=== PATIENT | female | born 1945 | race Caucasian/White ===

== ENCOUNTER → 2017-08-22 | Outpatient (CLI) | payer OTHER ==
[~2017-08-22] VITALS: Ht 154.9 cm; Wt 61.2 kg
[~2017-08-22] MED LIST: SYNTHROID88 MCG PO; ZANTAC 150MG T150 MG PO
--- NOTE | ~2017-08-22 | P ---
[facility] [place] [address] [address] [place] [address] PROCEDURE REPORT Name: FERCHO MARKS Room #: REG [facility]#: [id number] Admission: 08/22/17 Attend Phys: Eulalio Russo MD Discharge: Date of : 43 Report #: [id number] THIS REPORT FOR: //name// CC: Adela Russo BRIEF HISTORY: The patient is a 72-year-old woman with a history of colon polyps. Her last colonoscopy was 4-1/2 years ago. PREOPERATIVE DIAGNOSIS: History of colon polyps. POSTOPERATIVE DIAGNOSES: 1. Diminutive polyps times 2, hepatic flexure. 2. Moderately severe diverticulosis coli, primarily left colon with a few scattered proximal colon. 3. Internal hemorrhoids. MEDICATIONS: Deep sedation with propofol per anesthesia. SPECIMEN: Polyps times 2, hepatic flexure. ESTIMATED BLOOD LOSS: 3 mL. PROCEDURE: Colonoscopy to cecum and terminal ileum with biopsy. FINDINGS: Prior to propofol sedation, procedure of colonoscopy discussed with the patient as well as potential risks, benefits, and complications. She indicates she understands and desires to proceed. With the patient in left lateral decubitus position, digital examination was completed, which revealed no abnormalities. Subsequently, the [employer]re[employer] video colonoscope was introduced into the rectum and advanced under direct vision to the cecum. Done with minimal difficulty. The cecum was identified by the ileocecal valve and the appendiceal orifice. I was able to visualize the distal segment of terminal ileum, which was inspected and noted to be unremarkable. At that point, the scope was slowly withdrawn and careful circumferential views obtained including retroflexing the scope in the ascending colon. As the scope was withdrawn, the mucosa was within normal limits, normal vascular pattern, and normal light reflex. No abnormalities were noted until the hepatic flexure was reached at which point 2 diminutive polyp was seen and removed by biopsy. Scope was further withdrawn and no additional neoplastic lesions were seen elsewhere in the colon. A few scattered diverticula were seen in the proximal colon, but she has noted to have moderately severe diverticular disease of the sigmoid colon without an endoscopic evidence of diverticulitis. The scope was withdrawn in the rectum. Upon retroflexion, hemorrhoids were seen. No other abnormalities were identified. Scope was withdrawn. The patient tolerated the [address] [address] PROCEDURE REPORT Name: SELINAFERCHO MAE Room #: REG [facility].#: [id number] Admission: 08/22/17 Attend Phys: Eulalio Russo MD Discharge: Date of : 43 Report #: [id number] procedure well. CONDITION OF THE PATIENT UPON DISCHARGE: Following procedure, the patient drowsy, aroused, conversant and will be discharged home when fully ambulatory. INSTRUCTIONS TO THE PATIENT AND FAMILY AT THE TIME OF DISCHARGE: Two small polyps identified and removed as described above. We will follow up on the path and make surveillance recommendations. If one or both polyps are adenomatous, she should return in 5 years. If neither adenomatous, she could consider a followup colon exam in 10 years on her overall polyps status at that time. Last colonoscopy was 4-1/2 years ago. Withdrawal time from the cecum was 13 minutes and 48 seconds. <ELECTRONICALLY SIGNED> By: Eulalio Russo MD 08/23/17 1108 1015 1039 Eulalio Russo MD /nt
--- NOTE | ~2017-08-22 | S ---
[facility] [place] [address] [place] [address] SURGICAL PATH RPT PROCEDURE Name: LISBET MARKS Room #: REG [facility]..#: [id number] Admission: 08/22/17 Date of : 41 Discharge: Report #: [id number] Path Case #: [id number] PATHOLOGY REPORT COLLECTION DATE: 08/22/2017 RECEIVED DATE: 08/22/2017 SUBMITTING PHYS: Dr. Eulalio Russo OTHER PHYS: Dr. Adela Mao SPECIMEN(S) RECEIVED: A.Polyp at hepatic flexure x2 * * * * * * * * * * * * FINAL DIAGNOSIS: Colon, hepatic flexure, biopsy: - Tubular adenoma, fragments. - Negative for high dysplasia. PATHOLOGIST: Ryan Tucker M.D. REPORT ELECTRONICALLY SIGNED BY: Ryan Tucker M.D. DATE/TIME: 08/23/2017 11:56 * * * * * * * * * * * * GROSS PATHOLOGY: The specimen is received in formalin, labeled "Lisbet Marks and polyp at hepatic flexure", are two kyle polypoid soft tissue 0.2 and a 0.4 cm in greatest dimension, entirely submitted in A1. (SWS; 08/22/2017) CLINICAL HISTORY: History of polyps INITIAL CPT CODE(S): A; 99675 Professional services performed by [facility] at [facility] [address] [place] [address] Technical services performed by [facility] at [address] [place] [address], [address], [place] [address]. [facility] [address] [place] [address] SURGICAL PATH RPT PROCEDURE Name: LISBET MARKS Room #: REG [facility] Edel#: [id number] Admission: 08/22/17 Date of : 41 Discharge: Report #: [id number] Path Case #: [id number] [place] [address] PHONE: [phone] DIRECTOR: Terry Love M.D. * * * END OF REPORT * * *
== END | disposition home or self-care (01) ==
LOC: GI 08:03
DX: Z09 Encounter for follow-up examination after completed treatment for conditions other than malignant neoplasm (principal); Z87.19 Personal history of other diseases of the digestive system; D12.3 Benign neoplasm of transverse colon; K57.30 Diverticulosis of large intestine without perforation or abscess without bleeding; K64.8 Other hemorrhoids; Z87.891 Personal history of nicotine dependence; Z85.828 Personal history of other malignant neoplasm of skin; K21.9 Gastro-esophageal reflux disease without esophagitis; Z90.711 Acquired absence of uterus with remaining cervical stump; Z96.641 Presence of right artificial hip joint; Z98.42 Cataract extraction status, left eye; Z98.890 Other specified postprocedural states; Z88.5 Allergy status to narcotic agent
CPT/HCPCS: 62110; 62900

== ENCOUNTER 2019-04-24 03:44 | Inpatient (IN) | payer OTHER ==
[~2019-04-24] VITALS: Ht 1 cm; Wt 64.9 kg
--- NOTE | ~2019-04-24 | HC ---
[facility] [place] [address] CONSULTATION Name: FERCHO MARKS Room #: 170-1 ADM IN M.R.#: [id number] Admission: 04/24/19 ������������������ Attend Phys: Claudio Artis MD Discharge: ������������������ Date of : 43 Report #: [id number] THIS REPORT FOR: //name// CC: Adela Artis DATE OF SERVICE: 04/24/2019 REASON FOR CONSULTATION/CHIEF COMPLAINT: Right thumb and distal phalanx fracture and left elbow dislocation. HISTORY OF PRESENT ILLNESS: The patient is a 73-year-old right-hand dominant female who went out to her car last night to put the windows up. She then started to return, became dizzy and fell. She sustained a significant amount of pain and deformity to her left elbow and complains of pain in her right thumb tip. She was then brought to the ER by her 39-year-old grandson and worked up for cardiac issue. She also underwent a closed reduction of her left elbow with splint application and she was diagnosed with a fracture of her thumb distal phalanx and placed into an Alumafoam splint as well. REVIEW OF SYSTEMS: MUSCULOSKELETAL: Denies other extremity complaints, see HPI. NEUROLOGIC: Denies numbness or tingling in her extremities. PAST MEDICAL HISTORY: Significant for hypothyroidism, gastroesophageal reflux disease and mitral valve prolapse. PAST SURGICAL HISTORY: Cataract surgery, right total hip arthroplasty, thyroidectomy and some type of surgical fixation for fracture of her ankle. ALLERGIES: ROXICET. MEDICATIONS: Levothyroxine. SOCIAL HISTORY: Lives at home with her 39-year-old grandson. Does not use any ambulatory aids. Just quit smoking about a year ago; however, smoked about a pack of cigarettes last week. She uses alcohol occasionally. LABORATORY STUDIES: Done on the date of admission show a white blood cell count 12.7, hemoglobin 12.2 and hematocrit 36. Chemistry is grossly normal. Her troponin is elevated. PHYSICAL EXAMINATION: GENERAL: The patient is awake, alert and oriented. She is a well-developed, well-nourished female in no acute distress. She interacts appropriately and has normal affect. [address] [address] CONSULTATION Name: SELINAFERCHO MAE Room #: 170-1 ADM IN .R.#: [id number] Admission: 04/24/19 ������������������ Attend Phys: Claudio Artis MD Discharge: ������������������ Date of : 43 Report #: [id number] VITAL SIGNS: Most recent vital signs show temperature of 36.6, heart rate is 85, respiratory rate is 18, blood pressure 158/54 and pulse oximetry 97% on room air. EXTREMITIES: Examination of her right upper extremity, her skin is clean, dry and intact. She has a moderate amount of edema and ecchymosis to the thumb P2 with a blue Alumafoam splint in place. She has gross motor and sensory intact throughout her right upper extremity. There is no tenderness to palpation to the sternum and clavicle, shoulder, arm, elbow, forearm, wrist or hand except for the thumb distal phalanx. She moves, gross motion is intact and is painless. Left upper extremity exam, she is in a posterior splint that extends to the dorsum of her hand. Her skin is otherwise clean, dry and intact. She has gross motor and sensory intact. She is able to flex and extend and abduct and adduct her fingers. There is no pain with gentle shoulder, wrist and hand range of motion. All compartments are soft. There is no pain with active or passive range of motion. Bilateral lower extremity exam, skin is clean, dry and intact. Gross motor and sensory intact. EHL, FHL, dorsiflexion and plantar flexion are intact. She has no pain with range of motion of the bilateral hips, knees, ankles or feet. No tenderness to palpation throughout the entire bilateral lower extremities. RADIOGRAPHS: Three views of the right thumb were reviewed and interpreted by myself as well as report was reviewed, which shows an essentially nondisplaced distal phalanx fracture of the thumb. Two views of the left elbow were reviewed and interpreted by myself as well as a report. Pre-reduction show a posterior elbow dislocation with a few small fragments. Post-reduction none of these fragments are noted and the elbow appears to be concentrically reduced. IMPRESSION AND PLAN: 1. Right thumb distal phalanx fracture that is essentially nondisplaced. She is currently in an Alumafoam splint. I would anticipate she would be in an Alumafoam splint for approximately 6 weeks. She is to not put any weight through the thumb; however, may weightbear through that hand. 2. Left elbow dislocation that is concentrically reduced. I encouraged finger range of motion. I will consult occupational therapy. She is to be nonweightbearing on that extremity. She should see me in my office at [facility] later next week. Questions were encouraged and answered to the [facility] [address] [place] [address] CONSULTATION Name: FERCHO MARKS Room #: 170-1 ADM IN M.R.#: [id number] Admission: 04/24/19 ������������������ Attend Phys: Claudio Artis MD Discharge: ������������������ Date of : 41 Report #: [id number] of my ability. Please call one of my [facility] partners this weekend if needed. We discussed the likelihood of some residual stiffness. ��������������������������������������������� ���������������������������������������� By: ��������������������������������������������� 0735 0906 Gregoria Santos MD /nt
[2019-04-24 03:59] VITALS: BP 158/54
[2019-04-24 04:21] LABS: ABSOLUTE NEUTROPHILS 10.5 thou/uL (1.4-8.2); BASOPHILS 0.4 % (0.0-2.0); EOSINOPHILS 0.2 % (0.0-3.0); HEMOGLOBIN 12.2 gm/dL (12.0-15.0); LYMPHOCYTES 9.8 % (24.0-44.0); MCH 31.9 pg (26.0-34.0); MCHC 33.8 g/dL (28.0-37.0); MCV 94.3 fL (80.0-100.0); MONOCYTES 7.2 % (1.0-8.0); PLATELET COUNT 239 thou/uL (150-400); POLYS 82.4 % (36.0-66.0); RBC 3.82 mil/uL (4.20-5.00); RDW 13.2 % (10.5-14.5); WBC 12.7 thou/uL (4.0-11.0)
[2019-04-24 04:24] LABS: CALCIUM 8.3 mg/dL (8.5-10.1); CREATININE 0.9 mg/dL (0.6-1.0); POTASSIUM 4.2 mmol/L (3.5-5.1)
[2019-04-24 04:33] LABS: MAGNESIUM 2.1 mg/dL (1.8-2.4)
[2019-04-24 04:34] LABS: TROPONIN-I 0.97 ng/mL (<0.06)
--- NOTE | 2019-04-24 05:20 | NUR ---
Closed reduction fo left elbow wasdone at bedside, was given propofol and was sedated during procedure, pt maintained vitals wnl during procedure, (see conscious sedation flowsheet).
--- NOTE | 2019-04-24 05:26 | NUR ---
pt off th unit to ct scan
[2019-04-24] MEDS ORDERED: PROTONIX40 M1 PO (08:11)
[2019-04-24] MEDS ORDERED: TUMS (08:12)
--- NOTE | 2019-04-24 08:41 | EKG ---
[place] [address] [address] [place] [address] ELECTROCARDIOGRAM REPORT Name: FERCHO MARKS Room #: 170-1 ADM IN M.R.#: [id number] ������������������ Admission: 04/24/19 ������������������ Attend Phys: Claudio Artis MD Discharge: ������������������ Date of : 41 Report #: [id number] ����������������������������������������������������������������� [id number] THIS REPORT FOR: //name// [facility] ED Test Date: 2019-04-24 Test Time: 04:25:03 Pat Name: FERCHO MARKS Department: Room: 170 Gender: F Assistant Grocery Store Manager: theresa : 1945 Requested By: Ryan Mena Order Number: [id number] MD: Markos Chopra Measurements Intervals [place] Rate: 71 P: 17 [place]: 144 QRS: 52 QRSD: 88 T: 70 QT: 389 QTc: 423 Interpretive Statements Sinus rhythm Probable anteroseptal infarct, old Compared to ECG 08/12/2006 09:46:51 Septal Q waves are more prominent Electronically Signed On 04-24-2019 8:41:34 CDT by Markos Chopra [email or web address] ��������������������������������������������� <ELECTRONICALLY SIGNED> ���������������������������������������� By: Markos Chopra MD, [facility] ��������������������������������������������� 04/24/19 0841 0425 0425 Markos Chopra MD, [facility] /EPI
--- NOTE | 2019-04-24 08:45 | EKG ---
[address] [place] [address] ELECTROCARDIOGRAM REPORT Name: FERCHO MARKS Room #: 170-1 ADM IN M.R.#: [id number] ������������������ Admission: 04/24/19 ������������������ Attend Phys: Claudio Artis MD Discharge: ������������������ Date of : 41 Report #: [id number] ����������������������������������������������������������������� [id number] THIS REPORT FOR: //name// [facility] ED Test Date: 2019-04-24 Test Time: 06:33:07 Pat Name: FERCHO MARKS Department: Room: 170 Gender: F Pedodontist: theresa : 1945 Requested By: Ryan Mena Order Number: [id number] MD: Markos Chopra Measurements Intervals [place] Rate: 68 P: 38 [place]: 149 QRS: 45 QRSD: 81 T: 70 QT: 412 QTc: 439 Interpretive Statements Sinus rhythm Probable anteroseptal infarct, old Compared to ECG 08/12/2006 09:46:51 No significant change was found Electronically Signed On 04-24-2019 8:44:55 CDT by Markos Chopra [email or web address] ��������������������������������������������� <ELECTRONICALLY SIGNED> ���������������������������������������� By: Markos Chopra MD, [facility] ��������������������������������������������� 04/24/19 0844 2 2 Markos Chopra MD, [facility] /EPI
[2019-04-24 09:32] VITALS: BP 124/62
[2019-04-24 09:54] LABS: CHOLESTEROL 210 mg/dL (<200); HDL CHOLESTEROL 61 mg/dL (>40); LDL CHOLESTEROL 131 mg/dL (<100); TC:HDL 3.4 Ratio (Not establshd); TRIGLYCERIDE 93 mg/dL (<150); VLDL 19 mg/dL (<40)
[2019-04-24 10:06] VITALS: BP 142/70
--- NOTE | 2019-04-24 14:06 | NUR ---
ASSUMED CARE AT 1100, SHIFT ASSESSMENT DONE, MEDS GIVEN, VSS. ADMISSION DONE. NSR ON TELE, ROOM AIR. RATES CHEST PAIN AT 1/10; REPORTED LEFT ARM PAIN AT 8/10, PRN HYDROCODONE GIVEN. UP WITH STANDBY ASSIST. WILL CONTINUE TO ASSESS AND ASSIST WITH ADLs NEEDED.
--- NOTE | 2019-04-24 15:39 | NUR ---
Case opened to follow for dc planning needs. Pt is a&ox4 and indicates that she lives independently in her home. She stay on the main floor with 2 steps in the front door and 3 from the garage. Her gson Yonatan lives on the second floor and is available 03/06 as he is currently off work. She does not use an assistive device but has a cane from a hip replacement a couple of years ago. She is familiar with hh but does not feel she will need it. She is independent with gait, adl's, drives and trys to maintain an active life style. She walks outside daily, mows her lawn and gardens. Her sons Shyam and Wilton are available as well if she needs help with errands. She is hoping to dc home tomorrow and do any cardiac f/u as an outpt. Therapy evals in progress. Pt has a splint on for her left elbow. She will need to f/u with ortho as well. No cm interventions indicated at this time unless otherwise recommended by therapy.
--- NOTE | 2019-04-24 17:39 | NUR ---
PATIENT REPORTED PAIN, 7/10 AFTER HYDROCODONE, PRN MORPHINE GIVEN WITH SOME RELIEF. WILL CONTINUE TO ASSESS AND ASSIST WITH ADLs NEEDED.
[2019-04-24 20:00] VITALS: BP 116/54
[2019-04-25 03:13] VITALS: BP 145/72
--- NOTE | 2019-04-25 04:42 | NUR ---
ASSUMED PT CARE AT 1900. VSS. PT A&0X4. COMPLAINED OF ARM PAIN MORPHINE ADMNISTERED. PT SLEPT WELL FOR MOST OF THE NIGHT, NO COMPLAINTS OF CHEST PAIN OR DISCOMFORT. PT HAD A SLIGHT TEMP ELEVATION OF 37.9 CELCIUS THIS AM, TYLENOL TO BE ADMINISTERED AND TEMP TO BE RECHECKED. OTHERWISE, PT IS STABLE, WILL CONTINUE TO MONITOR PER POC.
[2019-04-25 04:58] LABS: HEMATOCRIT 32.2 % (37.0-47.0); HEMOGLOBIN 11.1 gm/dL (12.0-15.0); MCH 32.3 pg (26.0-34.0); MCHC 34.5 g/dL (28.0-37.0); MCV 93.7 fL (80.0-100.0); RBC 3.44 mil/uL (4.20-5.00); RDW 13.2 % (10.5-14.5); WBC 6.2 thou/uL (4.0-11.0)
[2019-04-25 05:16] LABS: CALCIUM 7.7 mg/dL (8.5-10.1); CREATININE 0.9 mg/dL (0.6-1.0); MAGNESIUM 2.2 mg/dL (1.8-2.4); POTASSIUM 4.4 mmol/L (3.5-5.1); TROPONIN-I 0.38 ng/mL (<0.06)
[2019-04-25 07:33] VITALS: BP 95/57
--- NOTE | 2019-04-25 11:05 | NUR ---
PT WENT DOWN AT 1000 FOR ANGIOGRAM. STAFF CALLED AND STATED SEE DID GREAT WILL BE BRINGING BACK TO UNIT IN APPROX 20 MIN.
--- NOTE | 2019-04-25 11:08 | EKG ---
[address] [address] ELECTROCARDIOGRAM REPORT Name: FERCHO MARKS Room #: 200-I ADM IN M.R.#: [id number] ������������������ Admission: 04/24/19 ������������������ Attend Phys: Claudio Artis MD Discharge: ������������������ Date of : 41 Report #: [id number] ����������������������������������������������������������������� [id number] THIS REPORT FOR: //name// [facility] Test Date: 2019-04-25 Test Time: 08:02:54 Pat Name: FERCHO MARKS Department: Room: 200 I Gender: F Gis Consultant: LALI : 1945 Requested By: Claudio Artis Order Number: [id number] MD: Irwin Urena Measurements Intervals [place] Rate: 77 P: 38 [place]: 136 QRS: 27 QRSD: 95 T: 62 QT: 396 QTc: 449 Interpretive Statements Sinus rhythm Abnormal R-wave progression, early transition Compared to ECG 04/24/2019 06:33:07 Myocardial infarct finding no longer present Electronically Signed On 04-25-2019 11:07:53 CDT by Irwin Urena [email or web address] ��������������������������������������������� <ELECTRONICALLY SIGNED> ���������������������������������������� By: Irwin Urena MD ��������������������������������������������� 04/25/19 1107 0802 1 MD ANH Gray
--- NOTE | 2019-04-25 11:29 | NUR ---
PT BACK FROM ANGIOGRAM ALERT XS 4 NO PAIN OR RESP DISTRESS. HAS DRSG TO RIGHT GROIN INTACT NO S/S BLEEDING. PT EATING LATE BREAKFAST WAS NPO.
--- NOTE | 2019-04-25 13:06 | CATHLAB ---
[facility] [address] [place] [address] INVASIVE PROCEDURE REPORT Name: FERCHO MARKS Room #: 200-I ADM IN ..#: [id number] ������������� Admission: 04/24/19 ������������� Attend Phys: Claudio Artis MD Discharge: ��� ������������� ��� Date of : 41 Date of Service: 04/25/19 1306 �� Report #: [id number] �������� ��������������������������������������������[id number] THIS REPORT FOR: //name// APPROVED REPORT Study performed: 04/25/2019 09:54:47 Patient Details Patient Status: In-Patient Room #: 200 The patient is a 73 year-old female Event Personnel Irwin Urena Bank Teller, Jim Leahy RN RN, Manjula Snell RTR, SUPERVISOR [employer]PARTMENT Monitor, Nicole Banks SUPERVISOR [employer]MENT Scrub Procedures Performed Art Access - R femoral artery* Left Heart Cath w/or w/o Coronaries [id number] [facility] [address] Initial Mod Sed Same Phys/QHP Gr5y 425704 Hemostasis w/ Mynx , Left Ventriculogram Indication Non-STEMI , Dyspnea, Syncope, Chest pain Risk Factors Hypercholesterolemia Procedure Narrative The Right Groin^ was infiltrated with 1% Lidocaine subcutaneous anesthesia. A PINNACLE 5FR Sheath #[id number] sheath was inserted into the RFA^. Coronary angiography was performed using coronary diagnostic catheters. The right coronary system was accessed and visualized with a JR4 catheter. The left coronary system was accessed and visualized with a JL4 catheter. The left ventricle was accessed and visualized with a angled Pigtail catheter. Left ventricular/Aortic Valve gradient assessed via catheter pullback. Left ventriculogram was performed in 30 degree projection. Pre-demployment femoral angiogram was performed . Closure device was deployed with a 5 Fr MYNXGRIP 5F #[id number]. The patient tolerated the procedure well and there were no complications associated with the procedure. There was no hematoma. Intraoperative Conscious Sedation Sedation start time: 10:42 Case end Time: 11:03 Fentanyl 50 mcg Versed 1 mg [facility] [address] [address] INVASIVE PROCEDURE REPORT Name: SELINAFERCHO MAE Room #: 200-I ADM IN ..#: [id number] ������������� Admission: 04/24/19 ������������� Attend Phys: Claudio Artis MD Discharge: ��� ������������� ��� Date of : 41 Date of Service: 04/25/19 1306 �� Report #: [id number] �������� ��������������������������������������������[id number] Fluoro Time: 1.25 minutes Dose: DAP 2004.30 cGycm2 245 mGy Contrast Type and Amount: Omnipaque 65 ml Coronary Angiography The patient's coronary anatomy is right dominant. Diagnostic Cath Left Main This is a large caliber vessel, patent with no flow-limiting lesions. LAD This is a moderate-sized caliber vessel, traversing the anterior wall and wrapping around the apex. There is mild disease in the mid segment, 20%. Diagonal 1 This is a patent vessel, with no flow-limiting lesions. Diagonal 2 This is a patent vessel, with no flow-limiting lesions. Circumflex This is a patent vessel, with no flow-limiting lesions. OM1 This is a patent vessel, with no flow-limiting lesions. OM2 This is a patent vessel, with no flow-limiting lesions. Right Coronary This is a dominant vessel, with mild disease in the mid segment, 20%. R PDA This is a patent vessel, with no flow-limiting lesions. RPLV This is a patent vessel, with no flow-limiting lesions. Left Ventriculography The left ventricle is normal in size with normal contractility. The left ventricular ejection fraction is estimated to be 55-60%. Hemodynamics The aortic pressure is 113/47 mmHg with a mean of 73 mmHg. The left ventricular pressure is 107/3 mmHg with a mean of mmHg. The left ventricular end diastolic pressure is 14 mmHg. Conclusion 1. 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 [facility] [address] [place] [address] INVASIVE PROCEDURE REPORT Name: FERCHO MARKS Room #: 200-I [facility] IN .R.#: [id number] ������������� Admission: 04/24/19 ������������� Attend Phys: Claudio Artis MD Discharge: ��� ������������� ��� Date of : 41 Date of Service: 04/25/19 1306 �� Report #: [id number] �������� ��������������������������������������������[id number] 2. Normal LV systolic function. 3. Recommend risk factor management. ��������������������������������������������� <ELECTRONICALLY SIGNED> ���������������������������������������� By: Irwin Urena MD ��������������������������������������������� 04/25/19 1306 1306 1306 Irwin Urena MD /INF
--- NOTE | 2019-04-25 14:11 | 2DMMODE ---
[place] [address] [address] 2 D/M-MODE ECHOCARDIOGRAM Name: MARKSFERCHO MAURO Room #: 200-I ADM IN M.R.#: [id number] ������������� Admission: 04/24/19 ������������� Attend Phys: Claudio Artis MD Discharge: ��� ������������� ��� Date of : 41 Date of Service: 04/25/19 1411 �� Report #: [id number] �������� ��������������������������������������������[id number] THIS REPORT FOR: //name// APPROVED REPORT Study performed: 04/25/2019 11:40:59 EXAM: Comprehensive 2D, Doppler, and color-flow Echocardiogram with contrast Patient Location: Bedside Room #: 200 Status: routine BSA: 1.64 BP: 95/57 mmHg Rhythm: NSR Other Information Study Quality: Fair Technically limited study due to inability to position patient, post cath. Indications Hx. mitral valve prolapse, elevated troponin, chest pain, synopal episode, SOA Echo Enhancing Agent Indication: Endocardial border delineation Agent(s) / Amount(s) Used: Optison 6 cc 2D Dimensions LVOT Diam: 20.02 (18-24mm) Aortic Root: 31.41 mm Volumes Left Atrial Volume (Systole) Single Plane 4CH: 43.78 mL Single Plane 2CH: 34.74 mL LA ESV Index: 25.00 mL/m2 Aortic Valve AoV Peak Brayan.: 1.54 m/s AO Peak Gr.: 9.52 mmHg LVOT Max P.25 mmHg LVOT Max V: 1.15 m/s ARLETTE Vmax: 2.34 cm2 Mitral Valve [facility] [address] [place] [address] 2 D/M-MODE ECHOCARDIOGRAM Name: FERCHO MARKS Room #: 200-I ADM IN M.R.#: [id number] ������������� Admission: 04/24/19 ������������� Attend Phys: Claudio Artis MD Discharge: ��� ������������� ��� Date of : 41 Date of Service: 04/25/19 1411 �� Report #: [id number] �������� ��������������������������������������������[id number] E/A Ratio: 0.8 MV Decel. Time: 249.50 ms MV E Max Brayan.: 0.70 m/s MV A Brayan.: 0.83 m/s MV PHT: 72.35 ms IVRT: 113.03 ms Pulmonary Valve PV Peak Brayan.: 1.21 m/s PV Peak Gr.: 5.86 mmHg Pulmonary Vein P Vein S: 0.53 m/s P Vein D: 0.27 m/s P Vein S/D Ratio: 1.96 Tricuspid Valve TR Peak Brayan.: 2.49 m/s RAP Estimate: 5.00 mmHg TR Peak Gr.: 24.78 mmHg PA Pressure: 30.00 mmHg Left Ventricle The left ventricle is normal size. There is normal left ventricular wall thickness. The left ventricular systolic function is normal. The left ventricular ejection fraction is within the normal range. LVEF is 65%. Mild diastolic dysfunction is present (impaired relaxation pattern). Right Ventricle The right ventricle is normal size. The right ventricular systolic function is normal. Atria The left atrium size is normal. The right atrium size is normal. Aortic Valve The aortic valve is normal in structure, trileaflet. No aortic regurgitation is present. There is no aortic valvular stenosis. Mitral Valve Mitral valve is not well visualized. Trace mitral regurgitation. No evidence of mitral valve stenosis. Tricuspid Valve The tricuspid valve is normal in structure. Mild tricuspid [facility] [address] [place] [address] 2 D/M-MODE ECHOCARDIOGRAM Name: MARKSFERCHO Room #: 200-I ADM IN M.R.#: [id number] ������������� Admission: 04/24/19 ������������� Attend Phys: Claudio Artis MD Discharge: ��� ������������� ��� Date of : 41 Date of Service: 04/25/19 1411 �� Report #: [id number] �������� ��������������������������������������������[id number] regurgitation. Estimated PAP of 30 mmHg. Pulmonic Valve The pulmonary valve is normal in structure. There is no pulmonic valvular regurgitation. Great Vessels The aortic root is normal in size. IVC is normal in size and collapses >50% with inspiration. Pericardium There is no pericardial effusion. <Conclusion> The left ventricle is normal size. There is normal left ventricular wall thickness. The left ventricular systolic function is normal. Mild diastolic dysfunction is present (impaired relaxation pattern). The right ventricle is normal size. The left atrium size is normal. The right atrium size is normal. The aortic valve is normal in structure, trileaflet. Trace mitral regurgitation. Mild tricuspid regurgitation. Estimated PAP of 30 mmHg. ��������������������������������������������� <ELECTRONICALLY SIGNED> ���������������������������������������� By: Irwin Urena MD ��������������������������������������������� 04/25/191410 10 10 Irwin Urena MD /INF
[2019-04-25 16:15] VITALS: BP 136/62
--- NOTE | 2019-04-25 17:33 | NUR ---
PT SBA TO BATHROOM. PT ALERTXS 4. STEADY GAIT. GIVEN PRN PAIN MED EARLIER. PT EATING DINNER SITING ONSIDE OF BED. HAS DRSG INTACT TO RIGHT GROIN AREA.
[2019-04-25 19:20] VITALS: BP 137/64
[2019-04-25 20:00] VITALS: BP 137/64
[2019-04-26] VITALS: BP 146/70
[2019-04-26 04:00] VITALS: BP 133/66; BP 159/77
[2019-04-26 05:17] LABS: HEMATOCRIT 31.2 % (37.0-47.0); HEMOGLOBIN 10.8 gm/dL (12.0-15.0); MCH 31.9 pg (26.0-34.0); MCHC 34.5 g/dL (28.0-37.0); MCV 92.7 fL (80.0-100.0); RBC 3.37 mil/uL (4.20-5.00); RDW 13.2 % (10.5-14.5)
[2019-04-26 05:27] LABS: CALCIUM 7.8 mg/dL (8.5-10.1); CREATININE 0.8 mg/dL (0.6-1.0); POTASSIUM 4.4 mmol/L (3.5-5.1)
[2019-04-26 07:35] VITALS: BP 133/66
--- NOTE | 2019-04-26 08:30 | NUR ---
RECEIVED PT'S CARE AT 1920; PT. ON BED AOX4; DURING ASSESSMENT C/O LUE PAIN; 07/21; PRN IV MEDICATION GIVEN; PAIN RE-ASSESSMENT; PT. SLEEPING; R. GROIN AREA MONITOR Q4H; NO HEMATOMA; PULSES PRESENT; CALLED APROPIATELY THROUGH THE NIGHT; REQUESTED PRN MEDICATION EARLY ON THE MORNING; PO MEDICATION GIVEN; ST. NO DECREASE PAIN; PRN IV MEDICATION GIVEN; ABLE TO REST; ASSESSMENT CHARGE; FOLLOWING POC; PASSED ON REPORT TO DOTTIE LUCIO.
[2019-04-26] MEDS ORDERED: HYDROCODON-ACE1 EAC7 PO (10:28)
[2019-04-26] MEDS ORDERED: LIPITOR 20 MG T20 M1 PO (10:28)
[2019-04-26] MEDS ORDERED: ASPIR 8181 MG PO (10:28)
[2019-04-26] MEDS ORDERED: ACETAMINOPHEN325 M1 PO (10:28)
[2019-04-26 11:29] VITALS: BP 133/66
--- NOTE | 2019-04-26 11:32 | NUR ---
SPOKE WITH PATIENT AND SHE STATES SHE DOES NOT NEED HOME HEALTH AT DISCHARGE ORDERED. PT STATES SHE LIVES WITH HER GRANDSON AND HER SON CHECKS ON HER FREQUENTLY. PT STATES SHE IS DECLINEING HOME HEALTH AT THIS TIME.
== END 2019-04-26 12:38 | disposition home or self-care (01) | DRG 562 ==
LOC: ER 03:44 → 2N 07:23 → EROBS 07:23 → 2N 09:34
PROVIDERS: Emergency Medicine; Internal Medicine Cardiovascular Disease; Nurse Practitioner Adult Health; ADMIT Internal Medicine
PROC: 2W3GX1Z Immobilization of Right Thumb using Splint (ICD-10-PCS; 2019-04-24)
PROC: 0RSMXZZ Reposition Left Elbow Joint, External Approach (ICD-10-PCS; 2019-04-24)
PROC: B2151ZZ Fluoroscopy of Left Heart using Low Osmolar Contrast (ICD-10-PCS; principal; 2019-04-25)
PROC: 4A023N7 Measurement of Cardiac Sampling and Pressure, Left Heart, Percutaneous Approach (ICD-10-PCS; principal; 2019-04-25)
PROC: B41J1ZZ Fluoroscopy of Other Lower Arteries using Low Osmolar Contrast (ICD-10-PCS; principal; 2019-04-25)
PROC: B2111ZZ Fluoroscopy of Multiple Coronary Arteries using Low Osmolar Contrast (ICD-10-PCS; principal; 2019-04-25)
DX: S53.105A Unspecified dislocation of left ulnohumeral joint, initial encounter (principal); I21.4 Non-ST elevation (NSTEMI) myocardial infarction; Z96.641 Presence of right artificial hip joint; G89.29 Other chronic pain; K21.9 Gastro-esophageal reflux disease without esophagitis; E89.0 Postprocedural hypothyroidism; S62.521A Displaced fracture of distal phalanx of right thumb, initial encounter for closed fracture; X58.XXXA Exposure to other specified factors, initial encounter; S62.524A Nondisplaced fracture of distal phalanx of right thumb, initial encounter for closed fracture; F17.200 Nicotine dependence, unspecified, uncomplicated; E07.81 Sick-euthyroid syndrome; R73.9 Hyperglycemia, unspecified; Z60.2 Problems related to living alone; E78.00 Pure hypercholesterolemia, unspecified; Z90.711 Acquired absence of uterus with remaining cervical stump; Z98.42 Cataract extraction status, left eye; Z88.6 Allergy status to analgesic agent; Z88.8 Allergy status to other drugs, medicaments and biological substances; Z79.890 Hormone replacement therapy; Y93.89 Activity, other specified; Y92.89 Other specified places as the place of occurrence of the external cause; Y99.8 Other external cause status; Z71.6 Tobacco abuse counseling
CPT/HCPCS: 10194

== ENCOUNTER → 2019-11-16 | Outpatient (CLI) | payer OTHER ==
[~2019-11-16] MED LIST changes: +ACETAMINOPHEN325 M1 PO; +ASPIR 8181 MG PO; +HYDROCODON-ACE1 EAC7 PO; +LIPITOR 20 MG T20 M1 PO; +PROTONIX40 M1 PO; +TUMS
== END ==
LOC: SJCVC 11:33
DX: I25.10 Atherosclerotic heart disease of native coronary artery without angina pectoris (principal); I10 Essential (primary) hypertension; R94.31 Abnormal electrocardiogram [ECG] [EKG]; Z79.82 Long term (current) use of aspirin; Z79.899 Other long term (current) drug therapy; E78.5 Hyperlipidemia, unspecified; E03.9 Hypothyroidism, unspecified; Z90.49 Acquired absence of other specified parts of digestive tract; Z87.891 Personal history of nicotine dependence

== ENCOUNTER → 2019-11-30 | Outpatient (CLI) | payer OTHER | LOC: SJCVC 11:29 | DX: Z87.891 Personal history of nicotine dependence (principal); E03.9 Hypothyroidism, unspecified; I25.10 Atherosclerotic heart disease of native coronary artery without angina pectoris; I10 Essential (primary) hypertension; E78.5 Hyperlipidemia, unspecified; Z72.89 Other problems related to lifestyle; Z79.82 Long term (current) use of aspirin; Z79.899 Other long term (current) drug therapy; Z88.5 Allergy status to narcotic agent; Z88.1 Allergy status to other antibiotic agents; Z88.8 Allergy status to other drugs, medicaments and biological substances ==

== ENCOUNTER → 2020-06-20 | Outpatient (CLI) | payer OTHER | LOC: SJCVC 14:04 | PROVIDERS: ATTEND Internal Medicine Cardiovascular Disease | DX: I25.10 Atherosclerotic heart disease of native coronary artery without angina pectoris (principal); R94.31 Abnormal electrocardiogram [ECG] [EKG]; E78.00 Pure hypercholesterolemia, unspecified; I10 Essential (primary) hypertension; Z79.899 Other long term (current) drug therapy; Z87.891 Personal history of nicotine dependence ==

== ENCOUNTER → 2021-06-20 | Outpatient (CLI) | payer OTHER | LOC: SJCVCIMAG 11:42 | PROVIDERS: ATTEND Internal Medicine Cardiovascular Disease | DX: I08.2 Rheumatic disorders of both aortic and tricuspid valves (principal); I11.9 Hypertensive heart disease without heart failure; R94.31 Abnormal electrocardiogram [ECG] [EKG]; I25.10 Atherosclerotic heart disease of native coronary artery without angina pectoris; E78.00 Pure hypercholesterolemia, unspecified; R60.9 Edema, unspecified; M19.90 Unspecified osteoarthritis, unspecified site; K21.9 Gastro-esophageal reflux disease without esophagitis; E03.9 Hypothyroidism, unspecified; E78.5 Hyperlipidemia, unspecified; Z90.710 Acquired absence of both cervix and uterus; Z98.890 Other specified postprocedural states; Z79.82 Long term (current) use of aspirin; Z79.899 Other long term (current) drug therapy; Z87.891 Personal history of nicotine dependence; Z82.49 Family history of ischemic heart disease and other diseases of the circulatory system ==

== ENCOUNTER → 2021-07-10 | Outpatient (CLI) | payer OTHER | LOC: SJCVCIMAG 09:24 | PROVIDERS: ATTEND Internal Medicine Cardiovascular Disease | DX: I49.3 Ventricular premature depolarization (principal); I25.10 Atherosclerotic heart disease of native coronary artery without angina pectoris; R55 Syncope and collapse; E78.00 Pure hypercholesterolemia, unspecified; I10 Essential (primary) hypertension; R60.9 Edema, unspecified; E03.9 Hypothyroidism, unspecified; Z87.891 Personal history of nicotine dependence; Z79.82 Long term (current) use of aspirin; Z79.899 Other long term (current) drug therapy; E78.5 Hyperlipidemia, unspecified ==

== ENCOUNTER 2021-09-17 17:20 | Emergency (ER) | payer OTHER ==
[~2021-09-17] VITALS: Ht 149.9 cm; Wt 61.2 kg
[2021-09-17] MEDS ORDERED: NORCO5 PO ×2 (20:12→20:16)
[2021-09-17 20:40] VITALS: BP 182/83
== END 2021-09-17 20:40 | disposition home or self-care (01) ==
LOC: ER 17:20
DX: S52.502A Unspecified fracture of the lower end of left radius, initial encounter for closed fracture (principal); K21.9 Gastro-esophageal reflux disease without esophagitis; Z90.711 Acquired absence of uterus with remaining cervical stump; Z90.89 Acquired absence of other organs; Z98.890 Other specified postprocedural states; Z88.5 Allergy status to narcotic agent; W19.XXXA Unspecified fall, initial encounter; Y93.89 Activity, other specified; Y92.89 Other specified places as the place of occurrence of the external cause; Y99.8 Other external cause status

== ENCOUNTER → 2022-01-08 | Outpatient (CLI) | payer OTHER ==
[~2022-01-08] MED LIST changes: +NORCO5 PO
== END ==
LOC: SJCVC 12:57
PROVIDERS: ATTEND Internal Medicine Cardiovascular Disease
DX: R94.31 Abnormal electrocardiogram [ECG] [EKG] (principal); I25.10 Atherosclerotic heart disease of native coronary artery without angina pectoris; R55 Syncope and collapse; E78.00 Pure hypercholesterolemia, unspecified; R60.9 Edema, unspecified; I10 Essential (primary) hypertension; E78.5 Hyperlipidemia, unspecified; E03.9 Hypothyroidism, unspecified; Z79.82 Long term (current) use of aspirin; Z79.899 Other long term (current) drug therapy; Z87.891 Personal history of nicotine dependence; Z72.89 Other problems related to lifestyle; Z95.818 Presence of other cardiac implants and grafts; Z82.49 Family history of ischemic heart disease and other diseases of the circulatory system